=== PATIENT | male | born 2000 | race Two or more races ===

== ENCOUNTER 2024-05-25 02:39 | Emergency (ER) | payer SELFPAY ==
[2024-05-25 02:57] VITALS: BP 135/106; PULSE 72; TEMP 36.6; O2SAT 99; BMI 17.2
[2024-05-25] MEDS: 0.9 % SODIUM CHLORIDE 1,000 ML 1000 ML IV (03:14)
[2024-05-25] MEDS: ONDANSETRON PF 4 MG/2 ML VIAL IV (03:14)
--- NOTE | 2024-05-25 03:16 | ED_ITS ---
HPI HPI - General Adult General Chief complaint: Nausea/Vomiting/Diarrhea Stated complaint: VOMITING Time Seen by Provider: 05/25/24 02:43 Source: patient Mode of arrival: walk-in History of Present Illness HPI narrative: 24-year-old male to the emergency department with chief complaint of nausea and vomiting. Patient reports that he has a history of cannabinoid hyperemesis syndrome. He reports that he had typical symptoms began today with nausea vomiting and cramping abdominal pain. Patient reports he has had many ED visits, seeing GI, multiple 2 CT scans and workups for this. He reports that the only thing that works for him is IV pain medicine, nausea medicine and fluids. He reports that hot showers at home do help as well. He is hoping he can get some IV medications. Related Data Previous Rx's ?Medication ?Instructions ?Recorded ondansetron 4 mg disintegrating 4 mg PO Q8H PRN nausea and 05/25/24 tablet vomiting 4 days #16 tabs Allergies Allergy/AdvReac Type Severity Reaction Status Date / Time haloperidol Allergy dystonia Verified 05/25/24 02:56 metoclopramide (From Reglan) Allergy dystonia Verified 05/25/24 02:56 prochlorperazine Allergy dystonia Verified 05/25/24 02:56 promethazine Allergy dystonia Verified 05/25/24 02:56 droperidol AdvReac Intermediate dystonia Verified 05/25/24 02:56 Opioid HPI Opioid Management Most Recent Opioid Data: No Data to Display Review of Systems ROS Status of ROS 10 or more systems reviewed and unremark able except as noted in history and below PFSH PFSH Social History Little interest or pleasure in doing things: not at all Feeling down, depressed, or hopeless: not at all Exam Narrative Exam Narrative: VITALS: I have reviewed the triage vital signs. GENERAL: Well developed, well appearing adult male in no acute distress. NEURO: Alert and oriented. Moves all extremities. Face is symmetric and expressive. EYES: PERRL. No scleral icterus or conjunctival injection. No discharge. HENT: Normocephalic, atraumatic. Hearing is grossly intact. Nares grossly patent and without discharge. Mucous membranes moist. NECK: No JVD. Patient moves neck without restriction. CARDIO: Rhythm regular. Normal rate. No murmur, rub, or gallop. Pulses equal bilaterally in the upper and lower extremity. No lower extremity edema. PULM: Lungs clear to auscultation in all swift. No wheezes, rales, or rhonchi. No conversational dyspnea. No splinting, stridor, or accessory muscle use. GI/: Abdomen is soft and non-tender. Normoactive bowel sounds. No rebound or guarding. EXTREMITIES: Symmetric muscle bulk. No joint swelling. No clubbing, cyanosis, or deformity. SKIN: Warm and dry. Normal turgor. No rash or lesions appreciated. PSYCH: Mood, affect, and interaction is appropriate to the setting. Constitutional Vital Signs, click to edit/add: Last Vital Signs Temp 97.8 F 05/25/24 02:57 Pulse 72 05/25/24 02:57 Resp 16 05/25/24 04:54 BP 135/88 05/25/24 04:54 Pulse Ox 99 05/25/24 04:54 O2 Del Method Room Air 05/25/24 04:54 Course Vital Signs Vital signs: Vital Signs Temperature 97.8 F 05/25/24 02:57 Pulse Rate 72 05/25/24 02:57 Respiratory Rate 14 05/25/24 02:57 Blood Pressure 135/106 H 05/25/24 02:57 Pulse Oximetry 99 05/25/24 02:57 Oxygen Delivery Method Room Air 05/25/24 02:57 Temperature 97.8 F 05/25/24 02:57 Pulse Rate 72 05/25/24 02:57 Respiratory Rate 16 05/25/24 04:54 Blood Pressure 135/88 05/25/24 04:54 Pulse Oximetry 99 05/25/24 04:54 Oxygen Delivery Method Room Air 05/25/24 04:54 Medical Decision Making [facility] Narrative Medical decision making narrative: 24-year-old male to the emergency department with chief complaint of chronic cyclic nausea and vomiting. Vital stable, the patient is afebrile. His abdominal examination is benign. I discussed with the patient. He reports he has extensive history of the symptoms. He reports he has been told it is due to his marijuana use. He reports that hot showers help. He reports that IV Zofran, pain medication, fluids help him. He does not appear dehydrated. He is moving his bowels and passing gas. Offered basic labs, lipase, EKG, abdominal series to the patient. He declines. Reports he would just like medication at discharge. Clinisync was reviewed for this patient. There is extensive history for this patient with dozens of ED visits in the last 6 months. He has had 3 CT scans in the last month alone. He has had gastric emptying studies. He has been admitted. Recent visit on 1209 at [facility] was reviewed including a negative CT scan. Recent visit on May 07 at [facility], May 05 at [facility], April 15 at [facility], April 12 at [facility], March 28 at [facility], March 06 at [facility] March 01 at [facility], February 01 at [facility], January 31 at [facility], January 03 that included clinic [facility] were reviewed. Prevailing diagnosis across [facility], [facility], clinic clinic [facility] appears to be cannabinoid hyperemesis syndrome. IV fluids and IV Zofran were ordered for the patient. He had no actual vomiting, just dry heaving. I do not believe that controlled substances are indicated including narcotic pain medications for the patient as he is requesting. He would like to be discharged home to take a hot shower which she reports helps some, I believe this is reasonable. The patient was discharged home at his request. Medical Records Medical records reviewed: Yes I reviewed the patient's medical records Discharge Plan Discharge Chief Complaint: Nausea/Vomiting/Diarrhea Clinical Impression: Vomiting Patient Disposition: Home, Self-Care Time of Disposition Decision: 04:58 Condition: Fair Mode of Transportation: Private Vehicle Prescriptions / Home Meds: New ondansetron 4 mg tablet,disintegrating 4 mg PO Q8H PRN (Reason: nausea and vomiting) 4 Days Qty: 16 0RF Print Language: [place] Instructions: Acute Nausea and Vomiting (ED) Additional Instructions: Call the office of your primary care doctor to arrange for follow-up within the above-stated timeframe. Your ED visit was focused on your acute issue and does not replace primary care. You should review your labs, imaging, and diagnoses from this ED visit with your primary care physician. There may be non-emergent/ incidental findings that need further evaluation. You should review your vital signs including blood pressure with your PCP. If you were prescribed medications you should discuss possible side-effects and drug interactions with your pharmacist. Call 911 or go to the nearest Emergency Department if you develop any new or worsening symptoms. Seek immediate medical attention if you develop: worsening abdominal pain, new or worsening nausea, new or worsening vomiting, new or worsening diarrhea, chest pain, shortness of breath, pain with urination, problems u rinating, fever, chills, weakness, or any new or worsening symptoms. Referrals: Physician,Non-Staff, MD [Primary Care Provider] - 1 week (Follow-up with your doctor. Take the Zofran you have at home. You must never smoked marijuana again.)
--- NOTE | 2024-05-25 03:19 | PC.NURSE ---
Pt has been seen multiple times for N/V at several EDs in the [place] area. He has an emesis bag with 300 ml of clear liquids.
[2024-05-25] MEDS: DICYCLOMINE HCL 20 MG/2 ML VIAL IM (03:47)
[2024-05-25 04:54] VITALS: BP 135/88; O2SAT 99
== END 2024-05-25 05:31 | disposition home or self-care (01) ==
PROVIDERS: Emergency Provider Student in an Organized Health Care Education/Training Program
DX: R11.2 Nausea with vomiting, unspecified (principal)
CPT/HCPCS: 96361; 96372; 96374; 99284; J0500; J2405